=== PATIENT | male | born 1940 | race Caucasian/White ===

== ENCOUNTER 2016-10-29 09:44 | Inpatient (IN) | payer MEDICARE ==
[~2016-10-29] VITALS: Ht 187.9 cm; Wt 99.3 kg
[2016-10-29] VITALS (10 sets, daily range): BP systolic 105–161; BP diastolic 56–103
--- NOTE | ~2016-10-29 | CON ---
[place], [place] REPORT OF CONSULTATION NAME: JAZMYNE DACOSTA [facility] #: [id number] UNIT #: [id number] ROOM: 504 DOCTOR: KITTY ZURITA MD BIRTHDATE: [birth year] DOS: 10/29/2016 REASON FOR CONSULTATION: Tachycardia, atrial fibrillation. CLINICAL HISTORY: The patient is a 76-year-old gentleman with history of paroxysmal atrial fibrillation, hypertension, dyslipidemia, supraventricular tachycardia, came to the Emergency Room for palpitations. Around 7:30 in the morning, he noted to have a heart tracing while he was cutting the cucumbers, he kind of felt funny and noted to have some shortness of breath at that time, but no dizziness or syncope. He was on Coumadin for atrial fibrillation and his INR is 2.1 about a week ago. He presented to the Emergency Room and subsequently admitted to the hospital for his tachycardia and Cardiology consulted. His EKG showed narrow complex tachycardia, possible junctional tachycardia, but he denies any fever and chills, no cough, no hemoptysis. No nausea, vomiting, diarrhea. No headache, no blurred vision or double vision. No tingling, numbness or weakness. No hematuria. No PND or orthopnea. No chest pains. REVIEW OF SYSTEMS: Review of the 8 systems negative except as mentioned above. PAST MEDICAL HISTORY: 1. Paroxysmal atrial fibrillation. 2. Hypertension. 3. History of SVT. 4. COPD. 5. Dyslipidemia. 6. Anemia. 7. Chronic kidney disease. 8. Prediabetes condition. PAST SURGICAL HISTORY: No significant past surgical history. SOCIAL HISTORY: The patient does not drink or smoke and does not use illicit drugs. ALLERGIES: No known drug allergies. FAMILY HISTORY: Father from pancreatic cancer. Mother in her 60s, some cancer. The two of his sisters have atrial fibrillation. HOME MEDICATIONS: Current medications reviewed. PHYSICAL EXAMINATION: VITAL SIGNS: Blood pressure 140/71, pulse 64, respiratory rate was 14. GENERAL: Alert, comfortable, in no acute distress. HEENT: Pupils are round and equal. No jaundice. NECK: Supple, no distended neck veins, no carotid bruit. CHEST: Symmetrical, nontender. LUNGS: Clear to auscultation bilaterally except a few scattered rhonchi. HEART: Regular rhythm, no S3, grade 1/6 systolic murmur. ABDOMEN: Benign, nontender. Bowel sounds normal. [place], [place] REPORT OF CONSULTATION NAME: [facility]OST[facility] [id number] UNIT #: [id number] ROOM: [facility] DOCTOR: KITTY ZURITA MD BIRTHDATE: [birth year] EXTREMITIES: Showed no edema. Distal pulses are palpable. SKIN: Warm and dry. No cyanosis, no clubbing. NEUROLOGIC: The patient is alert and oriented. No focal neurologic deficit. IMPRESSION: 1. Atrial fibrillation with rapid ventricular rate, currently stable. 2. History of paroxysmal supraventricular tachycardia, stable. 3. Chronic kidney disease. 4. Hypertension. RECOMMENDATIONS: 1. Currently, heart rate, and blood pressure stable. Continue his current medications including Coumadin and Rythmol. 2. He declined further testing such as a 2D echo. 3. He had a stress test a few years ago and declined any stress test at this time. 4. He seems he is feeling better. Blood pressure and heart rate are stable, and he declined any further cardiac testing. He can be discharged home from the cardiac standpoint either today or tomorrow and follow with Dr. Mcmillan in 2-3 weeks after the discharge. 5. Keep his INR between 2-3. 6. tachycardia, consider adding low-dose beta blockers. KITTY ZURITA MD CM:CONSTR:REPORT OF CONSULTATION 2140 10/30/16 0027 interface
[~2016-10-29 09:44] MED LIST: ASPIRIN81 M1 PO; BETAPACE80 MG PO; COREG25 MG PO; COUMADIN5 M2 PO; HYDR25T PO; LEVOTHYROXIN0.025 MG PO; LISINOPRIL10 M1 PO; LOPRESSOR50 M1 PO; OMEPRAZOLE20 M2 PO; PROPAFENONE HC225 MG PO; THYROID MEDICINE PO; ZANTAC 150150 MG PO
[2016-10-29 10:05] LABS: BASO # 0.1 10*3/uL (0.0-0.1); BASO % 0.7 % (0.0-1.0); EOS # 0.2 10*3/uL (0.0-0.4); EOS % 2.1 % (1.0-4.0); HEMATOCRIT 44.6 % (42.0-52.0); HEMOGLOBIN 15.6 g/dl (14.0-18.0); LYMPH # 1.6 10*3/uL (1.3-4.4); MEAN CELL VOLUME 97.2 fl (80.0-94.0); MEAN PLATELET VOLUME 10.2 fl (9.6-12.3); MONO # 0.5 10*3/uL (0.1-1.0); MONO % 7.1 % (3.0-9.0); NEUT # 4.8 10*3/uL (2.3-7.9); NEUT % 67.8 % (47.0-73.0); PLATELET COUNT AUTOMATED 227 10*3/uL (130-400); RED BLOOD COUNT 4.59 10*6/uL (4.50-5.90); RED CELL DISTRI WIDTH 12.9 % (0-14.5); WHITE BLOOD COUNT 7.1 10*3/uL (4.8-10.8)
[2016-10-29 10:12] LABS: PROTHROMBIN TIME 22.5 SECONDS (9.0-12.4)
[2016-10-29 10:20] LABS: ALBUMIN 3.8 gm/dl (3.1-4.5); ALKALINE PHOSPHATASE 62 U/L (45-117); BILIRUBIN, TOTAL 0.6 mg/dl (0.2-1.0); BUN 19 mg/dl (7-24); C-REACTIVE PROTEIN < 0.29 MG/DL (0-0.3); CARBON DIOXIDE 28 mmol/L (21-32); CHLORIDE 104 mmol/L (98-107); CKMB 1.5 ng/ml (0.5-3.6); CPK 82 U/L (39-308); EST GLOM FILT AFRICAN AMERICAN > 60 ml/min; GLUCOSE 112 mg/dL (65-99); MAGNESIUM 2.3 mg/dL (1.5-2.1); POTASSIUM 3.9 mmol/L (3.5-5.1); SGOT/AST 15 IU/L (3-35); SGPT/ALT 20 U/L (12-78); SODIUM 143 mmol/L (136-145); TOTAL PROTEIN 7.9 gm/dL (6.4-8.2); TROPONIN I < 0.015 ng/ml (<0.045)
[2016-10-29] MEDS ORDERED: PROPAFENONE HC225 MG PO (12:17)
[2016-10-29] MEDS ORDERED: XANAX0.5 MG PO (12:17)
[2016-10-30] VITALS: BP 104/62
[2016-10-30 06:35] LABS: GLUCOSE 97 mg/dL (65-99)
[2016-10-30 06:36] LABS: BUN 20 mg/dl (7-24); CARBON DIOXIDE 30 mmol/L (21-32); CHLORIDE 108 mmol/L (98-107); EST GLOM FILT AFRICAN AMERICAN > 60 ml/min; POTASSIUM 4.1 mmol/L (3.5-5.1); SODIUM 144 mmol/L (136-145)
[2016-10-30 06:44] LABS: PROTHROMBIN TIME 22.7 SECONDS (9.0-12.4)
[2016-10-30 08:00] VITALS: BP 130/77
[2016-10-30 12:00] VITALS: BP 138/71
[2016-10-30] MEDS ORDERED: PANTOPRAZOLE SO40 MG PO (14:19)
[2016-10-30] MEDS ORDERED: LEVOTHYROXIN0.025 M1 PO (14:19)
== END 2016-10-30 15:12 | disposition home or self-care (01) | DRG 309 ==
LOC: ED 09:44 → 5E 10:51 → EDHOLD 10:51 → 5E 11:19
PROVIDERS: Emergency Medicine; Internal Medicine
DX: I48.0 Paroxysmal atrial fibrillation (principal); D68.69 Other thrombophilia; J44.9 Chronic obstructive pulmonary disease, unspecified; N18.3 Chronic kidney disease, stage 3 (moderate); R73.03 Prediabetes; I12.9 Hypertensive chronic kidney disease with stage 1 through stage 4 chronic kidney disease, or unspecified chronic kidney disease; E05.90 Thyrotoxicosis, unspecified without thyrotoxic crisis or storm; E78.5 Hyperlipidemia, unspecified; K21.9 Gastro-esophageal reflux disease without esophagitis; E03.9 Hypothyroidism, unspecified; Z80.0 Family history of malignant neoplasm of digestive organs; Z83.6 Family history of other diseases of the respiratory system; Z82.49 Family history of ischemic heart disease and other diseases of the circulatory system; Z79.84 Long term (current) use of oral hypoglycemic drugs; Z79.899 Other long term (current) drug therapy; Z79.01 Long term (current) use of anticoagulants

== ENCOUNTER 2016-11-15 15:03 | Inpatient (IN) | payer MEDICARE ==
[~2016-11-15] VITALS: Ht 188 cm; Wt 98.1 kg
--- NOTE | ~2016-11-15 | ST ---
[place], [place] EXERCISE STRESS TEST REPORT NAME: JAZMYNE DACOSTA UNIT #: [id number] ROOM: 524 DOCTOR: LEXI CARRILLO MD BIRTHDATE: [birth year] DOS: 11/16/2016 INDICATIONS: Chest pain and atrial fibrillation. PHARMACOLOGICAL STRESS TEST: The patient was given Lexiscan 0.4 mg IV over 10 seconds followed by nuclear injection at 40 seconds. Performance: Baseline heart rate was 58 and blood pressure 110/70. Blood pressure at 2 minutes was 120/70, heart rate 90. EKG RESPONSE: Baseline EKG showed sinus bradycardia. Stress EKG, no ST changes in 2 and 3. CLINICAL RESPONSE: The patient feels like he is flushed. INTERPRETATION: 1. Negative Lexiscan stress test. 2. Wait for Cardiolite images for full report. LEXI CARRILLO MD CM:STRESS:EXERCISE STRESS TEST REPORT [id number] LEXI CARRILLO MD
[~2016-11-15 15:03] MED LIST changes: +LEVOTHYROXIN0.025 M1 PO; +PANTOPRAZOLE SO40 MG PO; +XANAX0.5 MG PO
[2016-11-15 15:19] VITALS: BP 162/80
[2016-11-15] MEDS ORDERED: COUMADIN5 M2 PO (15:33)
[2016-11-15 15:48] LABS: BASO % 0.5 % (0.0-1.0); EOS # 0.2 10*3/uL (0.0-0.4); EOS % 2.9 % (1.0-4.0); HEMOGLOBIN 13.7 g/dl (14.0-18.0); LYMPH # 1.3 10*3/uL (1.3-4.4); MEAN CELL VOLUME 93.4 fl (80.0-94.0); MEAN CORPUSCULAR HGB 33.7 pg (27.0-31.0); MEAN CORPUSCULAR HGB CONC 36.1 g/dl (33.0-37.0); MEAN PLATELET VOLUME 10.5 fl (9.6-12.3); MONO # 0.4 10*3/uL (0.1-1.0); MONO % 7.1 % (3.0-9.0); NEUT # 3.6 10*3/uL (2.3-7.9); NEUT % 65.3 % (47.0-73.0); PLATELET COUNT AUTOMATED 179 10*3/uL (130-400); RED BLOOD COUNT 4.07 10*6/uL (4.50-5.90); RED CELL DISTRI WIDTH 12.6 % (0-14.5); WHITE BLOOD COUNT 5.5 10*3/uL (4.8-10.8)
[2016-11-15 16:05] LABS: ALBUMIN 3.6 gm/dl (3.1-4.5); ALKALINE PHOSPHATASE 56 U/L (45-117); BILIRUBIN, TOTAL 0.7 mg/dl (0.2-1.0); BUN 21 mg/dl (7-24); CARBON DIOXIDE 24 mmol/L (21-32); CHLORIDE 104 mmol/L (98-107); CPK 124 U/L (39-308); EST GLOM FILT AFRICAN AMERICAN 59 ml/min; GLUCOSE 145 mg/dL (65-99); POTASSIUM 4.1 mmol/L (3.5-5.1); SGOT/AST 27 IU/L (3-35); SGPT/ALT 21 U/L (12-78); SODIUM 141 mmol/L (136-145)
[2016-11-15 16:08] LABS: CKMB 1.5 ng/ml (0.5-3.6)
[2016-11-15 16:11] LABS: TROPONIN I < 0.015 ng/ml (<0.045)
[2016-11-15 16:13] LABS: INTERNATIONAL NORM RATIO 2.2 (2.0-3.5); PROTHROMBIN TIME 24.8 SECONDS (9.0-12.4)
[2016-11-15 17:21] VITALS: BP 149/85
[2016-11-15 18:01] VITALS: BP 136/65
[2016-11-15 21:37] VITALS: BP 125/71
[2016-11-16 00:10] VITALS: BP 123/76
[2016-11-16 00:42] LABS: CKMB 1.3 ng/ml (0.5-3.6); TROPONIN I 0.022 ng/ml (<0.045)
[2016-11-16 04:05] VITALS: BP 120/70
[2016-11-16 06:38] LABS: BASO % 0.6 % (0.0-1.0); EOS # 0.2 10*3/uL (0.0-0.4); EOS % 3.5 % (1.0-4.0); HEMATOCRIT 38.5 % (42.0-52.0); HEMOGLOBIN 13.5 g/dl (14.0-18.0); LYMPH # 1.5 10*3/uL (1.3-4.4); MEAN CORPUSCULAR HGB 33.8 pg (27.0-31.0); MEAN CORPUSCULAR HGB CONC 35.1 g/dl (33.0-37.0); MONO # 0.6 10*3/uL (0.1-1.0); MONO % 10.2 % (3.0-9.0); NEUT # 3.1 10*3/uL (2.3-7.9); NEUT % 58.1 % (47.0-73.0); PLATELET COUNT AUTOMATED 176 10*3/uL (130-400); RED BLOOD COUNT 3.99 10*6/uL (4.50-5.90); RED CELL DISTRI WIDTH 12.6 % (0-14.5); WHITE BLOOD COUNT 5.4 10*3/uL (4.8-10.8)
[2016-11-16 06:43] LABS: MEAN CELL VOLUME 96.5 fl (80.0-94.0)
[2016-11-16 06:50] LABS: INTERNATIONAL NORM RATIO 2.2 (2.0-3.5); PROTHROMBIN TIME 24.7 SECONDS (9.0-12.4)
[2016-11-16 07:09] LABS: CKMB 1.5 ng/ml (0.5-3.6); TROPONIN I 0.017 ng/ml (<0.045)
[2016-11-16 07:11] LABS: ALBUMIN 3.4 gm/dl (3.1-4.5); ALKALINE PHOSPHATASE 53 U/L (45-117); BILIRUBIN, TOTAL 0.7 mg/dl (0.2-1.0); BUN 18 mg/dl (7-24); CARBON DIOXIDE 33 mmol/L (21-32); CHLORIDE 105 mmol/L (98-107); CHOLESTEROL 134 mg/dL (<200); EST GLOM FILT AFRICAN AMERICAN > 60 ml/min; FREE T4 1.16 ng/dl (0.76-1.46); GLUCOSE 99 mg/dL (65-99); HDL CHOLESTEROL 48 mg/dl (40-60); LDL CHOLESTEROL 71 mg/dL (9-159); PHOSPHOROUS 2.8 mg/dL (2.5-4.9); POTASSIUM 3.9 mmol/L (3.5-5.1); SGOT/AST 12 IU/L (3-35); SGPT/ALT 16 U/L (12-78); SODIUM 141 mmol/L (136-145); TOTAL PROTEIN 6.7 gm/dL (6.4-8.2); TRIGLYCERIDES 73 mg/dl (<150); VLDL CHOLESTEROL 15 mg/dL (6-40)
[2016-11-16 07:33] LABS: VITAMIN D, 25-HYDROXY 51.8 ng/mL (30-100)
[2016-11-16 07:41] LABS: FOLIC ACID > 24.00 ng/mL (>5.38)
[2016-11-16 08:00] VITALS: BP 122/80; BP 130/81
[2016-11-16 11:49] VITALS: BP 134/87
[2016-11-16] MEDS ORDERED: MYLICON, MYLANT80 MG PO (13:02)
[2016-11-16 16:09] VITALS: BP 114/61
== END 2016-11-16 16:25 | disposition home or self-care (01) | DRG 392 ==
LOC: ED 15:03 → 5E 16:31 → EDHOLD 16:31 → 5E 16:58
PROVIDERS: Internal Medicine; Registered Nurse
DX: K21.9 Gastro-esophageal reflux disease without esophagitis (principal); N18.3 Chronic kidney disease, stage 3 (moderate); I48.0 Paroxysmal atrial fibrillation; E83.51 Hypocalcemia; R07.9 Chest pain, unspecified; I12.9 Hypertensive chronic kidney disease with stage 1 through stage 4 chronic kidney disease, or unspecified chronic kidney disease; E03.9 Hypothyroidism, unspecified; Z80.0 Family history of malignant neoplasm of digestive organs; D64.9 Anemia, unspecified

== ENCOUNTER 2018-08-10 17:18 | Emergency (ER) | payer OTHER ==
[~2018-08-10] VITALS: Ht 187.9 cm; Wt 99.8 kg
[~2018-08-10 17:18] MED LIST changes: +MYLICON, MYLANT80 MG PO
== END 2018-08-10 18:16 | disposition home or self-care (01) ==
LOC: ED 17:18
DX: J02.9 Acute pharyngitis, unspecified (principal); R09.81 Nasal congestion; I12.9 Hypertensive chronic kidney disease with stage 1 through stage 4 chronic kidney disease, or unspecified chronic kidney disease; N18.3 Chronic kidney disease, stage 3 (moderate); K21.9 Gastro-esophageal reflux disease without esophagitis; E03.9 Hypothyroidism, unspecified; I48.0 Paroxysmal atrial fibrillation; Z79.899 Other long term (current) drug therapy

== ENCOUNTER 2019-12-26 18:19 | Emergency (ER) | payer MEDICARE ==
[~2019-12-26] VITALS: Ht 187.9 cm; Wt 97.5 kg
[2019-12-26 18:45] LABS: BASO # 0.1 10*3/uL (0.0-0.1); BASO % 0.7 % (0.0-1.0); EOS # 0.3 10*3/uL (0.0-0.4); EOS % 3.3 % (1.0-4.0); HEMATOCRIT 43.6 % (42.0-52.0); LYMPH # 2.4 10*3/uL (1.3-4.4); LYMPH % 32.1 % (27.0-41.0); MEAN CELL VOLUME 97.3 fl (80.0-94.0); MEAN CORPUSCULAR HGB 34.2 pg (27.0-31.0); MEAN CORPUSCULAR HGB CONC 35.1 g/dl (33.0-37.0); MEAN PLATELET VOLUME 10.4 fl (9.6-12.3); MONO # 0.8 10*3/uL (0.1-1.0); MONO % 10.9 % (3.0-9.0); NEUT % 52.7 % (47.0-73.0); PLATELET COUNT AUTOMATED 237 10*3/uL (130-400); RED BLOOD COUNT 4.48 10*6/uL (4.50-5.90); RED CELL DISTRI WIDTH 12.8 % (0-14.5); WHITE BLOOD COUNT 7.5 10*3/uL (4.8-10.8)
[2019-12-26 18:56] LABS: ACT PARTIAL THROMBO TIME 34.1 SECONDS (20.0-32.1); INTERNATIONAL NORM RATIO 1.8 (2.0-3.5)
[2019-12-26 19:04] LABS: ALBUMIN 3.9 gm/dl (3.1-4.5); ALKALINE PHOSPHATASE 87 U/L (45-117); BUN 29 mg/dl (7-24); CHLORIDE 106 mmol/L (98-107); CREATININE 1.53 mg/dL (0.70-1.30); POTASSIUM 3.8 mmol/L (3.5-5.1); SGOT/AST 15 IU/L (3-35); SGPT/ALT 22 U/L (12-78); SODIUM 139 mmol/L (136-145); TOTAL PROTEIN 7.9 gm/dL (6.4-8.2)
[2019-12-26 19:05] LABS: TROPONIN I < 0.015 ng/ml (<0.045)
[2019-12-26 19:29] LABS: FREE T4 1.35 ng/dl (0.76-1.46)
[2019-12-26 19:34] LABS: THYROID STIM HORMONE (HS) 5.78 uIU/ml (0.358-4.75)
== END 2019-12-26 21:12 | disposition home or self-care (01) ==
LOC: ED 18:19
PROVIDERS: Emergency Medicine
DX: I48.0 Paroxysmal atrial fibrillation (principal); I10 Essential (primary) hypertension; E03.9 Hypothyroidism, unspecified; K21.9 Gastro-esophageal reflux disease without esophagitis; Z79.899 Other long term (current) drug therapy; Z79.01 Long term (current) use of anticoagulants

== ENCOUNTER 2020-02-06 20:49 | Inpatient (IN) | payer MEDICARE ==
[~2020-02-06] VITALS: Ht 195.6 cm; Wt 99.0 kg
[2020-02-06 20:55] VITALS: BP 150/83
[2020-02-06 21:14] LABS: BASO % 0.7 % (0.0-1.0); EOS # 0.2 10*3/uL (0.0-0.4); EOS % 3.9 % (1.0-4.0); HEMATOCRIT 38.4 % (42.0-52.0); LYMPH # 2.2 10*3/uL (1.3-4.4); MEAN CELL VOLUME 95.8 fl (80.0-94.0); MEAN CORPUSCULAR HGB 33.2 pg (27.0-31.0); MEAN CORPUSCULAR HGB CONC 34.6 g/dl (33.0-37.0); MEAN PLATELET VOLUME 10.2 fl (9.6-12.3); MONO # 0.6 10*3/uL (0.1-1.0); MONO % 9.9 % (3.0-9.0); NEUT # 3.1 10*3/uL (2.3-7.9); NEUT % 50.3 % (47.0-73.0); PLATELET COUNT AUTOMATED 198 10*3/uL (130-400); RED BLOOD COUNT 4.01 10*6/uL (4.50-5.90); RED CELL DISTRI WIDTH 12.6 % (0-14.5); WHITE BLOOD COUNT 6.1 10*3/uL (4.8-10.8)
[2020-02-06 21:26] LABS: ACT PARTIAL THROMBO TIME 35.6 SECONDS (20.0-32.1); INTERNATIONAL NORM RATIO 2.1 (2.0-3.5)
--- NOTE | 2020-02-06 21:30 | NUR ---
XRAY AT BEDSIDE.
[2020-02-06 21:31] LABS: ALBUMIN 3.2 gm/dl (3.1-4.5); ALKALINE PHOSPHATASE 77 U/L (45-117); BUN 25 mg/dl (7-24); CHLORIDE 109 mmol/L (98-107); POTASSIUM 3.8 mmol/L (3.5-5.1); SGOT/AST 14 IU/L (3-35); SGPT/ALT 18 U/L (12-78); SODIUM 138 mmol/L (136-145); TOTAL PROTEIN 6.9 gm/dL (6.4-8.2)
[2020-02-06 21:33] LABS: TROPONIN I < 0.015 ng/ml (<0.045)
--- NOTE | 2020-02-06 21:33 | NUR ---
PT TO CT, CONDITION STABLE.
--- NOTE | 2020-02-06 22:59 | NUR ---
PT SITTING UP IN BED. NO COMPLAINTS AT THIS TIME. RESP EASY AND NONLABORE DON ROOM AIR.
--- NOTE | 2020-02-06 23:35 | NUR ---
MD AT BEDSIDE.ADVISES PT WILL BE ADMITTED.
[2020-02-06 23:45] VITALS: BP 148/92
--- NOTE | 2020-02-07 00:59 | NUR ---
PT RESTING IN BED.PT AWAITING ROOM ASSIGNMENT.
--- NOTE | 2020-02-07 01:22 | NUR ---
PT TO UNIT IN APPROX 5-10 MINUTES, AWAITING FLOOR RN WHO IS ATTENDING TO A PATIENT. .
[2020-02-07 01:33] VITALS: BP 151/79
[2020-02-07 01:55] VITALS: BP 151/92
--- NOTE | 2020-02-07 01:55 | NUR ---
A 79, admitted to 5E, under the services of LEXI Kraft MD with a diagnosis of SYMPTOMATIC BRADYCARDIA. Chief complaint is C/O FEELING "FUZZY". Patient arrived via stretcher from ER. Monitor applied. Initial assessment completed. Vital signs taken and recorded. LEXI KRAFT MD notified of admission to the unit. Orders received. See assessment for past medical history, medications and allergies. Patient and/or family oriented to unit. [facility] visitation policy reviewed. Clothing/patient valuable form completed. MARK RAMESH
--- NOTE | 2020-02-07 02:42 | NUR ---
CALLED DR. CARRILLO FOR ADMISSION ORDERS.
[2020-02-07] MEDS ORDERED: LEVOTHYROXINE75 MCG PO (03:02)
[2020-02-07] MEDS ORDERED: ZESTRIL10 MG PO (03:03)
--- NOTE | 2020-02-07 04:00 | NUR ---
RESTING IN BED WITH EYES CLOSED; CALL LIGHT WITHIN REACH.
--- NOTE | 2020-02-07 05:12 | NUR ---
PT'S HEART RATE IN THE 40'S. PT. AROUSES EASILY UPON ENTERING ROOM; VOICES NO C/O PAIN OR DISCOMFORT. WILL CONTINUE TO MONITOR. CALL LIGHT WITHIN REACH.
--- NOTE | 2020-02-07 06:23 | NUR ---
CALLED DR. LUKE PERTAINING TO CONSULT.
[2020-02-07 06:31] LABS: BASO % 0.6 % (0.0-1.0); EOS # 0.2 10*3/uL (0.0-0.4); EOS % 3.3 % (1.0-4.0); HEMATOCRIT 39.4 % (42.0-52.0); LYMPH # 1.9 10*3/uL (1.3-4.4); LYMPH % 28.9 % (27.0-41.0); MEAN CELL VOLUME 95.4 fl (80.0-94.0); MEAN CORPUSCULAR HGB 32.7 pg (27.0-31.0); MEAN CORPUSCULAR HGB CONC 34.3 g/dl (33.0-37.0); MONO # 0.6 10*3/uL (0.1-1.0); NEUT # 3.7 10*3/uL (2.3-7.9); NEUT % 57.7 % (47.0-73.0); PLATELET COUNT AUTOMATED 190 10*3/uL (130-400); RED BLOOD COUNT 4.13 10*6/uL (4.50-5.90); RED CELL DISTRI WIDTH 12.4 % (0-14.5); WHITE BLOOD COUNT 6.5 10*3/uL (4.8-10.8)
[2020-02-07 06:52] LABS: ALBUMIN 3.2 gm/dl (3.1-4.5); BUN 22 mg/dl (7-24); CHLORIDE 108 mmol/L (98-107); CREATININE 1.38 mg/dL (0.70-1.30); POTASSIUM 3.9 mmol/L (3.5-5.1); SGOT/AST 14 IU/L (3-35); SGPT/ALT 15 U/L (12-78); SODIUM 139 mmol/L (136-145)
[2020-02-07 07:02] LABS: ALKALINE PHOSPHATASE 64 U/L (45-117); TOTAL PROTEIN 6.9 gm/dL (6.4-8.2)
--- NOTE | 2020-02-07 10:43 | NUR ---
Physical Testing Supervisor in to talk to patient. Patient states lives at home with alone. There are no steps in the home. Physician: sal [facility]acy: [facility] Home health services: none Patient's level of ADLs: independent Patient has working utilities: all working DME: none Follow-up physician's appointment after d/c: patient chooses to make own follow up appointment when discharged Does patient want to access PORTAL?: no Discharge plan discussed with patient, he states he lives at home, gets around fine and is returning home when discharged, patient denies any home needs at this time. CAROLYN ARGUELLES
--- NOTE | 2020-02-07 10:50 | NUR ---
NOTIFIED DR. CARRILLO OF PATIENT COM[PLAINT OF FEELING FUZZY. PT STATED HE BECOMES EXCESSIVELY GASSY. DR CARRILLO ORDERRED PROTONIX IV, AND GI COCKTAIL; (SEE EMAR) .
[2020-02-07 12:00] VITALS: BP 159/88
[2020-02-07 16:00] VITALS: BP 155/79
[2020-02-07 20:00] VITALS: BP 122/57
[2020-02-08] VITALS: BP 118/62
[2020-02-08 06:08] LABS: BUN 21 mg/dl (7-24); CHLORIDE 108 mmol/L (98-107); CREATININE 1.37 mg/dL (0.70-1.30); POTASSIUM 3.9 mmol/L (3.5-5.1); SODIUM 140 mmol/L (136-145)
[2020-02-08 06:19] LABS: INTERNATIONAL NORM RATIO 2.2 (2.0-3.5)
--- NOTE | 2020-02-08 06:35 | NUR ---
24 HOUR CHART CHECK COMPLETE
--- NOTE | 2020-02-08 07:52 | NUR ---
PT RESTING IN BED. NO DISTRESS NOTED. WILL MONITOR
[2020-02-08 08:00] VITALS: BP 130/56
--- NOTE | 2020-02-08 10:59 | NUR ---
PT REQUESTED AND GIVEN XANAX FOR C/O ANXIETY WILL MONITOR
--- NOTE | 2020-02-08 11:30 | NUR ---
JAYJAY SGEAL PER PT WILL MONITOR
[2020-02-08 12:00] VITALS: BP 118/62
[2020-02-08] MEDS ORDERED: PROPAFENONE HY150 MG PO (14:51)
--- NOTE | 2020-02-08 15:35 | NUR ---
Discharge instructions reviewed with patient/family. Patient receptive and verbalizes understanding. Follow-up care arranged. Written instructions given to patient/family. PATITO LR
== END 2020-02-08 15:35 | disposition home or self-care (01) | DRG 310 ==
LOC: ED 20:49 → 5E 23:39 → EDHOLD 23:39 → 5E 02-07 01:07
PROVIDERS: Emergency Medicine Emergency Medical Services; ADMIT Internal Medicine
DX: I49.8 Other specified cardiac arrhythmias (principal); I48.0 Paroxysmal atrial fibrillation; F41.9 Anxiety disorder, unspecified; E03.9 Hypothyroidism, unspecified; N18.3 Chronic kidney disease, stage 3 (moderate); I12.9 Hypertensive chronic kidney disease with stage 1 through stage 4 chronic kidney disease, or unspecified chronic kidney disease; K21.9 Gastro-esophageal reflux disease without esophagitis; R79.89 Other specified abnormal findings of blood chemistry; E83.51 Hypocalcemia; E87.8 Other disorders of electrolyte and fluid balance, not elsewhere classified; Z80.0 Family history of malignant neoplasm of digestive organs; Z83.6 Family history of other diseases of the respiratory system; Z82.49 Family history of ischemic heart disease and other diseases of the circulatory system; Z79.01 Long term (current) use of anticoagulants

== ENCOUNTER 2020-02-28 13:39 | Emergency (ER) | payer MEDICARE ==
[~2020-02-28] VITALS: Ht 177.8 cm; Wt 81.6 kg
[~2020-02-28 13:39] MED LIST changes: +LEVOTHYROXINE75 MCG PO; +PROPAFENONE HY150 MG PO; +ZESTRIL10 MG PO
[2020-02-28 14:02] LABS: BASO # 0.1 10*3/uL (0.0-0.1); BASO % 0.7 % (0.0-1.0); EOS # 0.2 10*3/uL (0.0-0.4); HEMATOCRIT 41.3 % (42.0-52.0); LYMPH # 1.8 10*3/uL (1.3-4.4); LYMPH % 25.4 % (27.0-41.0); MEAN CELL VOLUME 95.8 fl (80.0-94.0); MEAN CORPUSCULAR HGB 32.9 pg (27.0-31.0); MEAN CORPUSCULAR HGB CONC 34.4 g/dl (33.0-37.0); MEAN PLATELET VOLUME 10.8 fl (9.6-12.3); MONO # 0.6 10*3/uL (0.1-1.0); MONO % 8.3 % (3.0-9.0); NEUT # 4.4 10*3/uL (2.3-7.9); NEUT % 62.3 % (47.0-73.0); PLATELET COUNT AUTOMATED 262 10*3/uL (130-400); RED BLOOD COUNT 4.31 10*6/uL (4.50-5.90); RED CELL DISTRI WIDTH 12.9 % (0-14.5); WHITE BLOOD COUNT 7.1 10*3/uL (4.8-10.8)
[2020-02-28 14:34] LABS: ACT PARTIAL THROMBO TIME 28.5 SECONDS (20.0-32.1); INTERNATIONAL NORM RATIO 2.1 (2.0-3.5)
[2020-02-28 14:38] LABS: ALBUMIN 3.4 gm/dl (3.1-4.5); ALKALINE PHOSPHATASE 69 U/L (45-117); BUN 18 mg/dl (7-24); CHLORIDE 114 mmol/L (98-107); POTASSIUM 4.2 mmol/L (3.5-5.1); SGOT/AST 26 IU/L (3-35); SGPT/ALT 22 U/L (12-78); SODIUM 141 mmol/L (136-145); TOTAL PROTEIN 7.1 gm/dL (6.4-8.2)
[2020-02-28 14:39] LABS: TROPONIN I < 0.015 ng/ml (<0.045)
[2020-02-28] MEDS ORDERED: GAS RELIEF 8080 MG PO (14:52)
== END 2020-02-28 15:20 | disposition home or self-care (01) ==
LOC: ED 13:39
PROVIDERS: Emergency Medicine
DX: I47.1 Supraventricular tachycardia (principal); I48.91 Unspecified atrial fibrillation; I10 Essential (primary) hypertension; K21.9 Gastro-esophageal reflux disease without esophagitis; E03.9 Hypothyroidism, unspecified; Z79.899 Other long term (current) drug therapy

== ENCOUNTER 2020-05-15 11:13 | Emergency (ER) | payer MEDICARE ==
[~2020-05-15] VITALS: Ht 185.4 cm; Wt 95.3 kg
[~2020-05-15 11:13] MED LIST changes: +GAS RELIEF 8080 MG PO
[2020-05-15 11:56] LABS: BASO % 0.2 % (0.0-1.0); EOS % 0.3 % (1.0-4.0); HEMATOCRIT 40.9 % (42.0-52.0); LYMPH # 0.9 10*3/uL (1.3-4.4); LYMPH % 8.6 % (27.0-41.0); MEAN CELL VOLUME 96.7 fl (80.0-94.0); MEAN CORPUSCULAR HGB 32.9 pg (27.0-31.0); MEAN PLATELET VOLUME 10.3 fl (9.6-12.3); MONO # 0.9 10*3/uL (0.1-1.0); NEUT # 8.3 10*3/uL (2.3-7.9); NEUT % 81.5 % (47.0-73.0); PLATELET COUNT AUTOMATED 243 10*3/uL (130-400); RED BLOOD COUNT 4.23 10*6/uL (4.50-5.90); RED CELL DISTRI WIDTH 12.6 % (0-14.5); WHITE BLOOD COUNT 10.2 10*3/uL (4.8-10.8)
[2020-05-15 12:12] LABS: ALBUMIN 3.3 gm/dl (3.1-4.5); CREATININE 2.78 mg/dL (0.70-1.30); POTASSIUM 4.1 mmol/L (3.5-5.1); TOTAL PROTEIN 7.9 gm/dL (6.4-8.2)
== END 2020-05-15 13:24 | disposition short-term general hospital (02) ==
LOC: ED 11:13
PROVIDERS: Nurse Practitioner Family
DX: R33.9 Retention of urine, unspecified (principal); N17.9 Acute kidney failure, unspecified; Z79.899 Other long term (current) drug therapy

== ENCOUNTER → 2020-06-01 | Outpatient (CLI) | payer MEDICARE | END | disposition home or self-care (01) | LOC: LAB 10:45 → US 11:00 | PROVIDERS: ATTEND Urology | DX: D17.71 Benign lipomatous neoplasm of kidney (principal); N40.0 Benign prostatic hyperplasia without lower urinary tract symptoms ==

== ENCOUNTER 2020-06-23 02:14 | Emergency (ER) | payer MEDICARE ==
[~2020-06-23] VITALS: Ht 185.4 cm; Wt 93.0 kg
== END 2020-06-23 05:31 | disposition home or self-care (01) ==
LOC: ED 02:14
DX: T83.9XXA Unspecified complication of genitourinary prosthetic device, implant and graft, initial encounter (principal); Y92.89 Other specified places as the place of occurrence of the external cause

== ENCOUNTER 2020-07-15 01:37 | Emergency (ER) | payer MEDICARE ==
[~2020-07-15] VITALS: Ht 187.9 cm; Wt 97.5 kg
[2020-07-15 02:22] LABS: BASO % 0.3 % (0.0-1.0); EOS # 0.2 10*3/uL (0.0-0.4); HEMATOCRIT 30.6 % (42.0-52.0); LYMPH # 1.1 10*3/uL (1.3-4.4); LYMPH % 10.7 % (27.0-41.0); MEAN CELL VOLUME 98.1 fl (80.0-94.0); MEAN CORPUSCULAR HGB 31.4 pg (27.0-31.0); MEAN PLATELET VOLUME 9.9 fl (9.6-12.3); MONO # 0.8 10*3/uL (0.1-1.0); MONO % 7.5 % (3.0-9.0); NEUT # 7.9 10*3/uL (2.3-7.9); NEUT % 78.9 % (47.0-73.0); PLATELET COUNT AUTOMATED 263 10*3/uL (130-400); RED BLOOD COUNT 3.12 10*6/uL (4.50-5.90); RED CELL DISTRI WIDTH 14.9 % (0-14.5)
[2020-07-15 02:34] LABS: ALBUMIN 3.1 gm/dl (3.1-4.5); ALKALINE PHOSPHATASE 68 U/L (45-117); BUN 24 mg/dl (7-24); CHLORIDE 106 mmol/L (98-107); CREATININE 1.45 mg/dL (0.70-1.30); POTASSIUM 3.9 mmol/L (3.5-5.1); SGOT/AST 13 IU/L (3-35); SGPT/ALT 12 U/L (12-78); SODIUM 139 mmol/L (136-145); TOTAL PROTEIN 6.3 gm/dL (6.4-8.2); TROPONIN I < 0.015 ng/ml (<0.045)
== END 2020-07-15 03:19 | disposition home or self-care (01) ==
LOC: ED 01:37
PROVIDERS: Internal Medicine
DX: I47.1 Supraventricular tachycardia (principal); D53.9 Nutritional anemia, unspecified; N18.31 Chronic kidney disease, stage 3a; Z79.899 Other long term (current) drug therapy

== ENCOUNTER → 2020-08-19 | Outpatient (CLI) | payer MEDICARE ==
[2020-08-19 11:28] LABS: BASO # 0.1 10*3/uL (0.0-0.1); BASO % 0.6 % (0.0-1.0); EOS # 0.2 10*3/uL (0.0-0.4); EOS % 1.9 % (1.0-4.0); HEMATOCRIT 37.5 % (42.0-52.0); LYMPH # 1.8 10*3/uL (1.3-4.4); LYMPH % 22.3 % (27.0-41.0); MEAN CELL VOLUME 95.7 fl (80.0-94.0); MEAN CORPUSCULAR HGB 30.9 pg (27.0-31.0); MEAN CORPUSCULAR HGB CONC 32.3 g/dl (33.0-37.0); MEAN PLATELET VOLUME 9.6 fl (9.6-12.3); MONO # 0.7 10*3/uL (0.1-1.0); NEUT # 5.4 10*3/uL (2.3-7.9); NEUT % 65.7 % (47.0-73.0); PLATELET COUNT AUTOMATED 295 10*3/uL (130-400); RED BLOOD COUNT 3.92 10*6/uL (4.50-5.90); RED CELL DISTRI WIDTH 14.5 % (0-14.5); WHITE BLOOD COUNT 8.2 10*3/uL (4.8-10.8)
[2020-08-19 11:43] LABS: ALBUMIN 3.4 gm/dl (3.1-4.5); ALKALINE PHOSPHATASE 80 U/L (45-117); BUN 30 mg/dl (7-24); CHLORIDE 108 mmol/L (98-107); CREATININE 1.39 mg/dL (0.70-1.30); POTASSIUM 4.2 mmol/L (3.5-5.1); SGOT/AST 17 IU/L (3-35); SGPT/ALT 19 U/L (12-78); SODIUM 139 mmol/L (136-145); TOTAL PROTEIN 7.8 gm/dL (6.4-8.2)
[2020-08-20 14:09] LABS: PROSTATE SPECIFIC AG FREE <0.02 ng/mL; PROSTATE SPECIFIC AG, SERUM <0.1 ng/mL (0.0-4.0)
== END | disposition home or self-care (01) ==
LOC: LAB 10:33 → US 11:00
PROVIDERS: ATTEND Urology
DX: N32.3 Diverticulum of bladder (principal); R97.20 Elevated prostate specific antigen [PSA]; R63.0 Anorexia

== ENCOUNTER → 2021-02-28 | Outpatient (CLI) | payer MEDICARE ==
[2021-02-28 10:48] LABS: BASO % 0.6 % (0.0-1.0); EOS # 0.2 10*3/uL (0.0-0.4); EOS % 2.8 % (1.0-4.0); HEMATOCRIT 39.4 % (42.0-52.0); LYMPH # 1.6 10*3/uL (1.3-4.4); LYMPH % 25.4 % (27.0-41.0); MEAN CELL VOLUME 96.3 fl (80.0-94.0); MEAN CORPUSCULAR HGB 32.8 pg (27.0-31.0); MEAN PLATELET VOLUME 10.2 fl (9.6-12.3); MONO # 0.5 10*3/uL (0.1-1.0); MONO % 8.5 % (3.0-9.0); NEUT % 62.5 % (47.0-73.0); PLATELET COUNT AUTOMATED 233 10*3/uL (130-400); RED BLOOD COUNT 4.09 10*6/uL (4.50-5.90); WHITE BLOOD COUNT 6.4 10*3/uL (4.8-10.8)
[2021-02-28 11:17] LABS: ALBUMIN 3.6 gm/dl (3.1-4.5); BUN 23 mg/dl (7-24); CHLORIDE 110 mmol/L (98-107); CREATININE 1.28 mg/dL (0.70-1.30); POTASSIUM 4.1 mmol/L (3.5-5.1); SGOT/AST 16 IU/L (3-35); SGPT/ALT 16 U/L (12-78); SODIUM 138 mmol/L (136-145); TOTAL PROTEIN 7.3 gm/dL (6.4-8.2)
[2021-02-28 11:19] LABS: ALKALINE PHOSPHATASE 66 U/L (45-117)
== END | disposition home or self-care (01) ==
LOC: LAB 10:11
PROVIDERS: ATTEND Urology
DX: D40.0 Neoplasm of uncertain behavior of prostate (principal); R53.83 Other fatigue

== ENCOUNTER → 2022-08-02 | Day surgery (SDC) | payer MEDICARE ==
[~2022-08-02] VITALS: Ht 185.4 cm; Wt 95.3 kg
[~2022-08-02] MED LIST changes: +Coumadin5 MG PO; +FINASTERIDE5 M1 PO; +TAMSULOSIN HCL0.4 MG PO
[2022-08-02 08:15] VITALS: BP 136/77
[2022-08-02 09:26] VITALS: BP 142/62
[2022-08-02 09:41] VITALS: BP 117/66
== END | disposition home or self-care (01) ==
LOC: SDC 07-28 10:15
PROVIDERS: ATTEND Ophthalmology
DX: H25.812 Combined forms of age-related cataract, left eye (principal); I48.91 Unspecified atrial fibrillation; I10 Essential (primary) hypertension; K21.9 Gastro-esophageal reflux disease without esophagitis; Z79.01 Long term (current) use of anticoagulants; Z79.899 Other long term (current) drug therapy